=== PATIENT | male | born 1980 | race Caucasian/White ===

== ENCOUNTER 2023-09-13 13:10 | Emergency (ER) | payer MEDICARE, OTHER, SELFPAY ==
[2023-09-13 13:17] VITALS: BP 134/93; PULSE 85; RESP 20; TEMP 36.4; O2SAT 99; BMI 33.4
--- NOTE | 2023-09-13 14:38 | ED.MALEGU1 ---
HPI - Male Genitourinary General Chief complaint: Urogenital-Male Stated complaint: UROGENITAL Time Seen by Provider: 09/13/23 14:10 Source: patient Mode of arrival: walk-in Limitations: no limitations History of Present Illness HPI Narrative: Patient is a 42-year-old male who presents to the emergency department for STD testing. He states for several months he has noticed an intermittent red rash to the side of his testicle without pain, drainage or itching. He is concerned that he may have an STD and would like to be tested. At this time he has no dysuria, fevers, vomiting. He states the rash just looks a little red . Related Data Allergies Allergy/AdvReac Type Severity Reaction Status Date / Time No Known Drug Allergies Allergy Verified 09/13/23 13:17 Review of Systems ROS Constitutional Denies: fever or chills Ears, nose, mouth, and throat Denies: throat pain or nasal congestion Cardiovascular Denies: chest pain Respiratory Denies: shortness of breath or cough Gastrointestinal Denies: abdominal pain, nausea or vomiting Genitourinary Denies: painful urination, urinary urgency, blood in urine, genital pain, genital lesion or scrotal swelling Integumentary/Breast Reports: rash PFSH PFSH Social History Smoking status: Heavy tobacco smoker Exam Narrative Exam Narrative: Gen.: Awake, alert, in no distress Head: Normocephalic, atraumatic ENT: Moist mucous membranes Respiratory: No respiratory distress : Patient examined with Gaurav Arizmendi RN At the bedside throughout the duration of the exam.Patient with no penile drainage or redness, no rash noted. Testicles are soft, scrotum with no swelling, open wounds, drainage. No testicular pain on palpation Extremities: Moves extremities equally Psych: Normal mood and affect Neuro: No focal neuro deficit Skin: Warm, dry, intact Constitutional Vital Signs, click to edit/add: Last Vital Signs Temp 97.6 F 09/13/23 13:17 Pulse 85 09/13/23 13:17 Resp 20 09/13/23 13:17 BP 134/93 H 09/13/23 13:17 Pulse Ox 99 09/13/23 13:17 O2 Del Method Room Air 09/13/23 13:17 Course Vital Signs Vital signs: Vital Signs Temperature 97.6 F 09/13/23 13:17 Pulse Rate 85 09/13/23 13:17 Respiratory Rate 20 09/13/23 13:17 Blood Pressure 134/93 H 09/13/23 13:17 Pulse Oximetry 99 09/13/23 13:17 Oxygen Delivery Method Room Air 09/13/23 13:17 Temperature 97.6 F 09/13/23 13:17 Pulse Rate 85 09/13/23 13:17 Respiratory Rate 20 09/13/23 13:17 Blood Pressure 134/93 H 09/13/23 13:17 Pulse Oximetry 99 09/13/23 13:17 Oxygen Delivery Method Room Air 09/13/23 13:17 MDM - Male Genitourinary MDM Narrative Medical decision making narrative: HSV testing. Patient encouraged to follow-up with PCP or the health department for testing for HIV, hepatitis or syphilis as needed. He was given referral information. Return to the emergency department if symptoms change or worsen. He declined prophylactic treatment in the ER. Medical Records Attestation: I reviewed the patient's medical records. Discharge Plan Discharge Chief Complaint: Urogenital-Male Clinical Impression: Encounter for assessment of STD exposure Patient Disposition: Home, Self-Care Time of Disposition Decision: 14:36 Condition: Good Instructions: Sexually Transmitted Diseases (ED) Additional Instructions: Follow up with PCP office for HIV/hepatitis and syphillis testing as needed Stand Alone Forms: Portal Instructions Referrals: PATY ERIC APRN [Physician] - 1 week Physician,Non-Staff, [Primary Care Provider] - 1 week
[2023-09-15 05:07] LABS: Neisseria gonorrhoeae, NAA Negative (Negative)
[2023-09-15 09:09] LABS: HSV-1 DNA Negative (Negative); HSV-2 DNA Negative (Negative)
== END 2023-09-13 14:52 | disposition home or self-care (01) ==
PROVIDERS: Physician Assistant; Emergency Provider Emergency Medicine
DX: Z20.2 Contact with and (suspected) exposure to infections with a predominantly sexual mode of transmission (principal); F17.210 Nicotine dependence, cigarettes, uncomplicated
CPT/HCPCS: 87491; 87529; 87591; 99283

== ENCOUNTER 2023-11-21 10:59 | Outpatient (OUT) | payer MEDICARE, MEDICAID, SELFPAY ==
[2023-11-21 11:41] LABS: Basophils Absolute Auto 0.1 10^3/uL (0.0-0.1); Basophils Percent Auto 0.8 % (0.2-2.0); Eosinophils Absolute Auto 0.2 10^3/uL (0.0-0.7); Hematocrit 44.3 % (42.0-54.0); Hemoglobin 15.2 g/dL (14.0-18.0); Immature Granulocytes Abs Auto 0.02 10^3/uL (0.00-0.03); Immature Granulocytes Pct Auto 0.3 % (0.0-0.5); Lymphocytes Absolute Auto 2.1 10^3/uL (1.2-3.8); Lymphocytes Percent Auto 33.3 % (20.5-60.0); Mean Corpuscular HGB Conc 34.3 g/dL (29.9-35.2); Mean Corpuscular Hemoglobin 31.9 pg (25.9-34.0); Mean Corpuscular Volume 93.1 fL (80.0-94.0); Mean Platelet Volume 10.2 fL (9.5-13.5); Monocytes Absolute Auto 0.5 10^3/uL (0.3-0.8); Monocytes Percent Auto 8.3 % (1.7-12.0); Neutrophils Absolute Auto 3.4 10^3/uL (1.4-6.5); Neutrophils Percent Auto 54.3 % (43.0-75.0); Platelet Count 265 10^3/uL (150-450); Red Blood Count 4.76 10^6/uL (4.70-6.10); Red Cell Distribution Width 12.5 % (11.0-15.0); White Blood Count 6.3 10^3/uL (4.0-11.0)
[2023-11-21 11:43] LABS: Estimated Average Glucose 97 mg/dL
[2023-11-21 11:46] LABS: Alanine Aminotransferase 17 U/L (16-63); Albumin Level 3.5 g/dL (3.4-5.0); Alkaline Phosphatase 72 U/L (46-116); Anion Gap 16.1; Aspartate Amino Transferase 11 U/L (15-37); BUN Creatinine Ratio 17.3; Bilirubin Total 0.3 mg/dL (0.2-1.0); Calcium 9.4 mg/dL (8.5-10.1); Carbon Dioxide 27.2 mmol/L (21.0-32.0); Chloride 105 mmol/L (98-107); Cholesterol 182 mg/dL (<=200); Estimated GFR (African America >60 (>=60); Estimated GFR (Non-African Ame >60 (>=60); Globulin 3.5 g/dL; Glucose 92 mg/dL (74-106); HDL Cholesterol 46 mg/dL (40-60); LDL Cholesterol Calculated 109.8 mg/dL; Potassium 4.3 mmol/L (3.5-5.1); Sodium 144 mmol/L (136-145); Triglycerides 131 mg/dL (<=150); VLDL CHOLESTEROL 26.2 mg/dL
== END 2023-11-21 11:00 | disposition home or self-care (01) ==
LOC: LAB 11:03
PROVIDERS: PCP Internal Medicine; Visit Provider Internal Medicine
DX: K44.9 Diaphragmatic hernia without obstruction or gangrene (principal); K21.00 Gastro-esophageal reflux disease with esophagitis, without bleeding; F25.0 Schizoaffective disorder, bipolar type; K62.5 Hemorrhage of anus and rectum; Z13.220 Encounter for screening for lipoid disorders; Z13.1 Encounter for screening for diabetes mellitus
CPT/HCPCS: 36415; 80053; 80061; 83036; 85025

== ENCOUNTER 2024-09-24 13:12 | Outpatient (OUT) | payer MEDICARE, MEDICAID, SELFPAY ==
[2024-09-24 13:37] LABS: Basophils Absolute Auto 0.1 10^3/uL (0.0-0.1); Basophils Percent Auto 1.1 % (0.2-2.0); Eosinophils Absolute Auto 0.1 10^3/uL (0.0-0.7); Eosinophils Percent Auto 0.9 % (0.9-7.0); Hemoglobin 16.4 g/dL (14.0-18.0); Immature Granulocytes Abs Auto 0.01 10^3/uL (0.00-0.03); Immature Granulocytes Pct Auto 0.2 % (0.0-0.5); Lymphocytes Absolute Auto 1.9 10^3/uL (1.2-3.8); Lymphocytes Percent Auto 34.2 % (20.5-60.0); Mean Corpuscular HGB Conc 35.7 g/dL (29.9-35.2); Mean Corpuscular Hemoglobin 32.8 pg (25.9-34.0); Monocytes Absolute Auto 0.6 10^3/uL (0.3-0.8); Monocytes Percent Auto 10.2 % (1.7-12.0); Neutrophils Percent Auto 53.4 % (43.0-75.0); Platelet Count 228 10^3/uL (150-450); Red Cell Distribution Width 12.6 % (11.0-15.0); White Blood Count 5.6 10^3/uL (4.0-11.0)
[2024-09-24 14:05] LABS: Alanine Aminotransferase 38 U/L (16-63); Albumin Globulin Ratio 1.2; Albumin Level 3.8 g/dL (3.4-5.0); Alkaline Phosphatase 63 U/L (46-116); Aspartate Amino Transferase 24 U/L (15-37); Bilirubin Direct 0.1 mg/dL (0.0-0.2); Bilirubin Total 0.3 mg/dL (0.2-1.0); Globulin 3.3 g/dL; Total Protein 7.1 g/dL (6.4-8.2)
[2024-09-24 14:31] LABS: Valproic Acid 51.5 ug/mL (50.0-100.0)
== END 2024-09-24 13:13 | disposition home or self-care (01) ==
PROVIDERS: Visit Provider Registered Nurse Psychiatric/Mental Health
DX: Z79.899 Other long term (current) drug therapy (principal)
CPT/HCPCS: 36415; 80076; 80164; 85025